=== PATIENT | female | born 1945 | race Caucasian/White ===

== ENCOUNTER → 2017-11-23 | Outpatient (CLI) | payer MEDICARE | LOC: LAB 13:00 → LAB SHORT 13:00 | DX: N39.0 Urinary tract infection, site not specified (principal) | CPT/HCPCS: 87086 ==

== ENCOUNTER → 2018-01-30 | Outpatient (CLI) | payer MEDICARE | END | disposition home or self-care (01) | LOC: LAB 11:30 → LAB SHORT 11:30 | DX: L98.499 Non-pressure chronic ulcer of skin of other sites with unspecified severity (principal) | CPT/HCPCS: 87070; 87205 ==

== ENCOUNTER → 2019-02-19 | Outpatient (CLI) | payer MEDICARE | END | disposition home or self-care (01) | LOC: LAB SHORT 11:30 → PLD 11:30 | DX: L30.8 Other specified dermatitis (principal) | CPT/HCPCS: 88305; 88312 ==

== ENCOUNTER 2020-09-16 07:15 | Day surgery (SDC) | payer MEDICARE ==
[~2020-09-16] VITALS: Ht 165.1 cm; Wt 71.7 kg
[~2020-09-16 07:15] MED LIST: Naproxen375 MG PO
--- NOTE | 2020-09-16 07:57 | NUR ---
09/16/20 0757 VAUGHN KELLER 0745-TETRACAINE GTT PLACED TO OPERATIVE EYE, 0748 MEDICATED PLEDGETT PLACED TO OPERATIVE EYE PER ORDERS
== END 2020-09-16 09:04 | disposition home or self-care (01) ==
LOC: ORSCSDS 07:15
PROVIDERS: Ophthalmology
PROC: 08RK3JZ Replacement of Left Lens with Synthetic Substitute, Percutaneous Approach (ICD-10-PCS; principal; 2020-09-16 08:30)
DX: H25.12 Age-related nuclear cataract, left eye (principal)
CPT/HCPCS: A9270; J2001; J2250; J3010; J3301; J7040; V2632

== ENCOUNTER 2021-06-10 12:00 | Inpatient (IN) | payer MEDICARE ==
[~2021-06-10] VITALS: Ht 165.1 cm; Wt 69.0 kg
[2021-06-10 13:43] LABS: BASOPHILS ABSOLUTE AUTO 0.04 K/mm3 (0.00-0.23); BASOPHILS PERCENT AUTO 1 % (0-2); EOSINOPHILS ABSOLUTE AUTO 0.09 K/mm3 (0.00-0.68); EOSINOPHILS PERCENT AUTO 2 % (0-6); Hematocrit 40.2 % (33.0-51.0); Hemoglobin 12.8 g/dL (11.5-16.0); IMMATURE GRAN ABSOLUTE AUTO 0.02 K/mm3 (0.00-0.10); IMMATURE GRAN PERCENT AUTO 0 % (0-1); LYMPHOCYTES ABSOLUTE AUTO 1.65 K/mm3 (0.84-5.20); LYMPHOCYTES PERCENT AUTO 28 % (21-46); MONOCYTES ABSOLUTE AUTO 0.38 K/mm3 (0.16-1.47); MONOCYTES PERCENT AUTO 6 % (4-13); Mean Corpuscular HGB Conc 31.8 g/dL (31.5-36.5); Mean Corpuscular Volume 88 fL (80-100); Mean Platelet Volume 9.8 fL (9.1-12.4); NEUTROPHILS ABSOLUTE AUTO 3.74 K/mm3 (1.96-9.15); NEUTROPHILS PERCENT AUTO 63 % (41-73); Platelet Count 402 K/mm3 (150-400); RDW Coefficient Variation 13.1 % (11.7-14.2); RDW Standard Deviation 42.3 fL (35.1-46.3); Red Blood Cell Count 4.57 M/mm3 (3.80-5.20); White Blood Cell Count 5.92 K/mm3 (4.00-11.30)
[2021-06-10 13:57] LABS: International Normalized Ratio 1.03; Prothrombin Time Results 10.8 Sec (9.7-11.5)
[2021-06-10 14:05] LABS: Alanine Aminotransfer (ALT/SGP 21 U/L (12-78); Albumin, Blood 3.8 g/dL (3.4-5.0); Albumin/Globulin Ratio 1.1 (0.8-1.8); Alk Phos 88 U/L (50-136); Anion Gap 6 mmol/L (6-16); Aspartate Aminotrans (AST/SGOT 16 U/L (12-37); Bilirubin, Total 0.3 mg/dL (0.1-1.0); Blood Urea Nitrogen 13 mg/dL (8-24); Bun/Creatinine Ratio 15.2 (12.0-20.0); CO2, Blood 26 mmol/L (21-32); Calcium, Blood 9.7 mg/dL (8.5-10.1); Chloride, Blood 108 mmol/L (98-108); Creatinine, Blood 0.86 mg/dL (0.40-1.00); Globulin, Blood 3.5 g/dL (2.2-4.0); Glomerular Filtration Rate >60 (60-); Glucose, Blood 103 mg/dL (70-99); Potassium, Blood 3.8 mmol/L (3.5-5.5); Sodium, Blood 140 mmol/L (136-145); Total Protein, Blood 7.3 g/dL (6.4-8.2)
[2021-06-10 15:25] LABS: Influenza A, PCR NEGATIVE (NEGATIVE); Influenza B, PCR NEGATIVE (NEGATIVE); Resp Syncytial Virus, PCR NEGATIVE (NEGATIVE); SARS-Cov-2 (COVID-19) PCR, MMC NEGATIVE (NEGATIVE)
[2021-06-10 19:03] LABS: Hematocrit 41.2 % (33.0-51.0); Hemoglobin 13.2 g/dL (11.5-16.0)
[2021-06-10 23:41] LABS: Hematocrit 40.1 % (33.0-51.0); Hemoglobin 12.9 g/dL (11.5-16.0)
[2021-06-11 05:15] LABS: Hemoglobin 12.9 g/dL (11.5-16.0)
[2021-06-11 11:21] LABS: Hemoglobin 12.4 g/dL (11.5-16.0)
[2021-06-11] MEDS ORDERED: AMLO10 PO (12:17)
== END 2021-06-11 12:55 | disposition home or self-care (01) | DRG 64 ==
LOC: CT 12:00 → ER 12:00 → EDSTATUS 13:00 → CT 13:00 → ERHOLD 15:51
PROVIDERS: Emergency Medicine; ADMIT Internal Medicine
DX: I61.9 Nontraumatic intracerebral hemorrhage, unspecified (principal); G93.6 Cerebral edema; I16.1 Hypertensive emergency; R26.89 Other abnormalities of gait and mobility; Z20.822 Contact with and (suspected) exposure to COVID-19; I10 Essential (primary) hypertension; Z98.890 Other specified postprocedural states; Z88.5 Allergy status to narcotic agent; Z88.8 Allergy status to other drugs, medicaments and biological substances; Z98.49 Cataract extraction status, unspecified eye; Z87.891 Personal history of nicotine dependence
CPT/HCPCS: 0241U; 36415; 70450; 70551; 70552; 80053; 84484; 85014; 85018; 85025; 85610; 85730; 93005; 93010; 96365; 96366; 96375; 96376; 99285-25; A9270; A9579; G0378; J7050

== ENCOUNTER 2021-12-17 00:20 | Day surgery (SDC) | payer MEDICARE ==
[~2021-12-17 00:20] MED LIST changes: +AMLO10 PO
[2021-12-17] MEDS ORDERED: VALA500 PO (17:11)
== END 2021-12-17 16:50 | disposition home or self-care (01) ==
LOC: ATC 00:20
DX: D50.9 Iron deficiency anemia, unspecified (principal); Z87.891 Personal history of nicotine dependence; Z88.5 Allergy status to narcotic agent; Z88.8 Allergy status to other drugs, medicaments and biological substances
CPT/HCPCS: 36415; 86850; 86900; 86901; 86920; J7040; P9016

== ENCOUNTER 2022-01-17 08:45 | Day surgery (SDC) | payer MEDICARE ==
[~2022-01-17] VITALS: Ht 165.1 cm; Wt 67.2 kg
[~2022-01-17 08:45] MED LIST changes: +VALA500 PO
== END 2022-01-17 11:27 | disposition home or self-care (01) ==
LOC: ORSCSDS 08:45
PROVIDERS: Student in an Organized Health Care Education/Training Program
PROC: 0DB58ZX Excision of Esophagus, Via Natural or Artificial Opening Endoscopic, Diagnostic (ICD-10-PCS; principal; 2022-01-17 10:15)
PROC: 0DBM8ZX Excision of Descending Colon, Via Natural or Artificial Opening Endoscopic, Diagnostic (ICD-10-PCS; principal; 2022-01-17 10:15)
PROC: 0DBK8ZX Excision of Ascending Colon, Via Natural or Artificial Opening Endoscopic, Diagnostic (ICD-10-PCS; principal; 2022-01-17 10:15)
PROC: 3E0H8KZ Introduction of Other Diagnostic Substance into Lower GI, Via Natural or Artificial Opening Endoscopic (ICD-10-PCS; principal; 2022-01-17 10:15)
PROC: 0DBL8ZX Excision of Transverse Colon, Via Natural or Artificial Opening Endoscopic, Diagnostic (ICD-10-PCS; principal; 2022-01-17 10:15)
PROC: 0DB98ZX Excision of Duodenum, Via Natural or Artificial Opening Endoscopic, Diagnostic (ICD-10-PCS; principal; 2022-01-17 10:15)
PROC: 0DB78ZX Excision of Stomach, Pylorus, Via Natural or Artificial Opening Endoscopic, Diagnostic (ICD-10-PCS; principal; 2022-01-17 10:15)
PROC: 0DB48ZX Excision of Esophagogastric Junction, Via Natural or Artificial Opening Endoscopic, Diagnostic (ICD-10-PCS; principal; 2022-01-17 10:15)
PROC: 0DBN8ZX Excision of Sigmoid Colon, Via Natural or Artificial Opening Endoscopic, Diagnostic (ICD-10-PCS; principal; 2022-01-17 10:15)
DX: D50.9 Iron deficiency anemia, unspecified (principal); K22.70 Barrett's esophagus without dysplasia; C18.2 Malignant neoplasm of ascending colon; D12.4 Benign neoplasm of descending colon; D12.3 Benign neoplasm of transverse colon; D12.5 Benign neoplasm of sigmoid colon; K29.70 Gastritis, unspecified, without bleeding; K44.9 Diaphragmatic hernia without obstruction or gangrene; Z79.899 Other long term (current) drug therapy
CPT/HCPCS: 88305; 88312; 88342; J2405; J2704

== ENCOUNTER 2022-02-25 06:05 | Inpatient (IN) | payer MEDICARE ==
[~2022-02-25] VITALS: Ht 165.1 cm; Wt 69.0 kg
[~2022-02-25 06:05] MED LIST changes: +LOSA50 PO; +LOSARTAN-HCTZ1 EACH PO; +OMEP20ER PO; +VALTREX500 M2 PO
--- NOTE | 2022-02-25 11:33 | NUR ---
02/25/22 1133 Edward Lopez [address] IN PLACE PER SURGEON. APPROX 300 IN BAG UPON TRANSFER
--- NOTE | 2022-02-25 15:36 | NUR ---
POST OP: REPORT RECEIVED FROM PROCEDURE ANALYST. PT TO UNIT AT ABOUT 1200. UPON ASSESSMENT PT IS A/O, VSS. SURGICAL SITES WNL. PT DENIES NAUSEA, ABLE TO TAKE SIPS OF WATER. PT REPORTS PAIN IS 2/10, TOLERABLE AT THIS TIME. PT AT BEDSIDE, WILL CTM.
--- NOTE | 2022-02-25 15:38 | NUR ---
[facility] SOCIAL WORKER SET UP AT ABOUT 1430. PT REPORTS PAIN UNCHANGED 08/05. PT GIVEN INSTRUCTIONS ON BUTTON USE, PT VERBALIZED UNDERSTANDING.
--- NOTE | 2022-02-25 17:49 | NUR ---
SUMMARY: NO ACUTE CHANGE SINCE POST OP. PT IS A/O, VSS. PT HAS RATED PAIN 4/10 AT THE HIGHEST, HAS PREFERED TYLENOL OVER USING THE INVOICE CONTROL CLERK. SURGICAL SITES ARE WNL, HERNÁNDEZ DRAINING. PT ABLE TO TOLERATE SMALL SIPS OF WATER, NO N/V. NO ACUTE CONCERNS, WILL PASS REPORT TO SHARONDA EATON.
--- NOTE | 2022-02-26 01:30 | NUR ---
INCREASED BLEEDING/WEAKNESS 2234 PT CALLED STAFF INTO THE ROOM TO REPORT WEAKNESS. SHE WAS LAYING IN BED ON HER SIDE. SHE REPORTS THAT SHE AMBULATED TO THE BATHROOM AND BARELY MADE IT BACK DUE TO INCREASED WEAKNESS. PRIOR TO THIS TIME, PT HAD BEEN FEELING GREAT. SHE REPORTED A MILD UPSET STOMACH AFTER DINNER, BUT OTHERWISE HAD BEEN DOING WELL. I EXAMINED THE TOILET, WHERE I FOUND A MODERATE AMOUNT OF HOLLIS BLOOD THAT SHE REPORTS COMING FROM HER RECTUM. PT REPORTS THAT SHE HAD BEEN HAVING THESE BLOODY STOOLS T/O THE DAY, BUT THAT IT HAD STARTED TO IMPROVE OVER THE COURSE OF THE DAY AND THAT HER STOOL HAD BEEN CLEARING. DR. STACY FIRST MADE AWARE OF PT BLOODY STOOL BY DAYSHIFT RN YESTERDAY 02/26 WHEN EPISODES FIRST STARTED OCCURING. HE DISCUSSED WITH PT THAT SOME BLEEDING AFTER THIS TYPE OF SURGERY IS TO BE EXPECTED. 2243 PT NEW REPORTS OF WEAKNESS THIS EVENING, INCREASE IN BLOODY STOOLS MORE SO THAN PREVIOUSLY REPORTED, AND INCREASED O2 NEEDS OF 1-2 LITERS FROM ROOM AIR TO KEEP SATS ABOVE 90'S IS A FRESH CONCERN. DR. STACY CALLED AND NOTIFIED. DR. STACY NOTIFIED OF INCREASED WEAKNESS/ RECTAL BLEEDING AND THE NEED FOR O2. NOTIFIED OF HIM OF PT CURRENT VITAL SIGNS. PT HEMODYNAMICALLY STABLE AT THIS TIME WITH REPEATED VITAL CHECKS. H&H, MAINTENANCE AND FLUID BOLUS ORDERED. H&H LOW AT 9.0 BUT STABLE. LAB RESULTS REVIEWED BY DR. STACY. REPEAT LABS TO BE DONE LATER THIS MORNING. 0100 PT ANXIOUS AND DUE TO HER NEW ONSET WEAKNESS PT REPORTS A CONCERN ABOUT A BRAIN BLEED SHE HAS A PMH OF A BRAIN BLEED AND REPORTS SHE EXPERIENCED THIS SAME TYPE OF WEAKNESS. NEURO IS INTACT PER MY ASSESSMENT. SHE IS REQUSTING A HEAD CT. DR. STACY MADE AWARE OF PT CONCERNS, AND FEELS THAT THE WEAKNESS IS CONTRIBUTED BY THE SURGERY, THIS WAS EXPLAINED TO PT. HE GAVE PT THE OPTION FOR A HEAD CT AND IF SHE DECIDED SHE WANTED ONE DURING HER ADMISSON THAT ONE WOULD BE ORDERED. AFTER RECEIVING THAT EXPLANATION AND REASSURANCE FROM DR. STACY SHE HAS NOT REQUESTED THAT ONE BE DONE AT THIS TIME. 0145 AT THIS TIME AFORMENTIONED INTERVENTIONS HAVE BEEN INITIATED ORDERED. PT RESTING IN BED AT THIS TIME. LAP SITES TO ABD X5 C/D/I. HAT IN TOIET TO MEASURE FURTHER BLOOD OUTPUT. PT VOIDING WITHOUT DIFFICULTY AND VITALS REMAIN STABLE. WILL CONTINUE MONITORING.
[2022-02-26 04:53] LABS: Bun/Creatinine Ratio 16.3 (12.0-20.0); Creatinine, Blood 0.86 mg/dL (0.40-1.00); Potassium, Blood 3.8 mmol/L (3.5-5.5)
[2022-02-26 05:44] LABS: BASOPHILS ABSOLUTE AUTO 0.07 K/mm3 (0.00-0.23); BASOPHILS PERCENT AUTO 1 % (0-2); EOSINOPHILS ABSOLUTE AUTO 0.01 K/mm3 (0.00-0.68); EOSINOPHILS PERCENT AUTO 0 % (0-6); Hematocrit 33.3 % (33.0-51.0); Hemoglobin 10.9 g/dL (11.5-16.0); IMMATURE GRAN PERCENT AUTO 1 % (0-1); LYMPHOCYTES ABSOLUTE AUTO 1.72 K/mm3 (0.84-5.20); LYMPHOCYTES PERCENT AUTO 20 % (21-46); MONOCYTES ABSOLUTE AUTO 0.76 K/mm3 (0.16-1.47); MONOCYTES PERCENT AUTO 9 % (4-13); Mean Corpuscular HGB 26.5 pg (26.0-34.0); Mean Corpuscular HGB Conc 32.7 g/dL (31.5-36.5); Mean Corpuscular Volume 81 fL (80-100); NEUTROPHILS ABSOLUTE AUTO 5.92 K/mm3 (1.96-9.15); NEUTROPHILS PERCENT AUTO 69 % (41-73); Platelet Count 268 K/mm3 (150-400); RDW Coefficient Variation 20.7 % (11.7-14.2); RDW Standard Deviation 60.3 fL (35.1-46.3); Red Blood Cell Count 4.12 M/mm3 (3.80-5.20); White Blood Cell Count 8.58 K/mm3 (4.00-11.30)
[2022-02-26 05:49] LABS: Mean Platelet Volume 9.7 fL (9.1-12.4)
--- NOTE | 2022-02-26 06:29 | NUR ---
SHIFT SUMMARY PT POD 0 HEMICOLECTOMY. PT HAS DONE WELL OVERNIGHT, AND HAS ONLY HAD MILD ABD PAIN. NO N/V. BOWEL TONES HYPOACTIVE, AND PT NOT PASSING GAS AT THIS TIME. PAIN WELL CONTROLLED WITH SCHEDULED TYLENOL AT THIS TIME, AND PT HAS NOT USED ANY OF THE [facility] [employer] EPIDEMIOLOGIST. PT HAS RESTED IN BED T/O THE NIGHT. ALTHOUGH SHE HAS NOT YET USED THE VETERINARY EPIDEMIOLOGIST, SHE WOULD LIKE TO KEEP THE VETERINARY EPIDEMIOLOGIST AN OPTION SHE IS CONCERNED ABOUT PAIN WITH AMBULATION. PT HAS NOT YET AMBULATED AFTER SURGERY AND SHE IS CONCERNED WITH HOW HER BODY WILL RESPOND. LAP SITES TO ABD C/D/I. IVF INFUSING ORDERED. VITALS ARE STABLE. HERNÁNDEZ PATENT AND DRAINING. BED IN LOWEST POSITION, CALL LIGHT WITHIN REACH.
--- NOTE | 2022-02-26 11:58 | NUR ---
BM: PT UP TO HAVE 2 SMALL RED BM'S. VOID X1 AFTER CATHETER REMOVAL.
--- NOTE | 2022-02-26 15:36 | NUR ---
OUTPUT: PT CONTINUES TO HAVE HOLLIS RED LIQUID BM. CBC TO BE REPEATED IN AM.
--- NOTE | 2022-02-26 19:33 | NUR ---
PT HAS BEEN STABLE THIS SHIFT. MINIMAL PAIN. NO NAUSEA. PT HAS HAD SEVERAL BLOODY BM'S. CBC TO BE REPEATED IN AM. PT TOLERATING CLEAR LIQUIDS. AMBULATING INDEP IN ROOM. LAP SITES CDI X5. VOIDING WELL AFTER HERNÁNDEZ DC'D. IV SL. PT CALLS APPROPRIATELY NEEDED.
[2022-02-26 23:06] LABS: Hematocrit 28.5 % (33.0-51.0)
--- NOTE | 2022-02-27 01:30 | NUR ---
INCREASED BLEEDING/WEAKNESS 2234 PT CALLED STAFF INTO THE ROOM TO REPORT WEAKNESS. SHE WAS LAYING IN BED ON HER SIDE. SHE REPORTS THAT SHE AMBULATED TO THE BATHROOM AND BARELY MADE IT BACK DUE TO INCREASED WEAKNESS. PRIOR TO THIS TIME, PT HAD BEEN FEELING GREAT. SHE REPORTED A MILD UPSET STOMACH AFTER DINNER, BUT OTHERWISE HAD BEEN DOING WELL. I EXAMINED THE TOILET, WHERE I FOUND A MODERATE AMOUNT OF HOLLIS BLOOD THAT SHE REPORTS COMING FROM HER RECTUM. PT REPORTS THAT SHE HAD BEEN HAVING THESE BLOODY STOOLS T/O THE DAY, BUT THAT IT HAD STARTED TO IMPROVE OVER THE COURSE OF THE DAY AND THAT HER STOOL HAD BEEN CLEARING. DR. STACY FIRST MADE AWARE OF PT BLOODY STOOL BY DAYSHIFT RN YESTERDAY 02/26 WHEN EPISODES FIRST STARTED OCCURING. HE DISCUSSED WITH PT THAT SOME BLEEDING AFTER THIS TYPE OF SURGERY IS TO BE EXPECTED. 2243 PT NEW REPORTS OF WEAKNESS THIS EVENING, INCREASE IN BLOODY STOOLS MORE SO THAN PREVIOUSLY REPORTED, AND INCREASED O2 NEEDS OF 1-2 LITERS FROM ROOM A TO KEEP SATS ABOVE 90'S IS A FRESH CONCERN. DR. STACY CALLED AND NOTIFIED. DR. STACY NOTIFIED OF INCREASED WEAKNESS/ RECTAL BLEEDING AND THE NEED FOR NOTIFIED OF HIM OF PT CURRENT VITAL SIGNS. PT HEMODYNAMICALLY STABLE AT THIS TIME WITH REPEATED VITAL CHECKS. H&H, MAINTENANCE AND FLUID BOLUS ORDERED. H&H LOW AT 9.0 BUT STABLE. LAB RESULTS REVIEWED BY DR. STACY. REPEAT LABS TO BE DONE LATER THIS MORNING. 0100 PT ANXIOUS AND DUE TO HER NEW ONSET WEAKNESS PT REPORTS A CONCERN ABOUT A BRAIN BLEED SHE HAS A PMH OF A BRAIN BLEED AND REPORTS SHE EXPERIENCED THI SAME TYPE OF WEAKNESS. NEURO IS INTACT PER MY ASSESSMENT. SHE IS REQUSTING A HEAD CT. DR. STACY MADE AWARE OF PT CONCERNS, AND FEELS THAT THE WEAKNESS IS CONTRIBUTED BY THE SURGERY, THIS WAS EXPLAINED TO PT. HE GAVE PT THE OPTION FOR A HEAD CT AND IF SHE DECIDED SHE WANTED ONE DURING HER ADMISSON THAT ONE WOULD BE ORDERED. AFTER RECEIVING THAT EXPLANATION AND REASSURANCE FROM DR. STACY SHE HAS NOT REQUESTED THAT ONE BE DONE AT THIS TIME. 0145 AT THIS TIME AFORMENTIONED INTERVENTIONS HAVE BEEN INITIATED ORDERED. PT RESTING IN BED AT THIS TIME. LAP SITES TO ABD X5 C/D/I. HAT IN TOIET TO MEASURE FURTHER BLOOD OUTPUT. PT VOIDING WITHOUT DIFFICULTY AND VITALS REMAIN STABLE. WILL CONTINUE MONITORING.
[2022-02-27 05:39] LABS: BASOPHILS ABSOLUTE AUTO 0.04 K/mm3 (0.00-0.23); BASOPHILS PERCENT AUTO 1 % (0-2); EOSINOPHILS PERCENT AUTO 0 % (0-6); Hematocrit 31.2 % (33.0-51.0); Hemoglobin 9.6 g/dL (11.5-16.0); IMMATURE GRAN ABSOLUTE AUTO 0.04 K/mm3 (0.00-0.10); IMMATURE GRAN PERCENT AUTO 1 % (0-1); LYMPHOCYTES ABSOLUTE AUTO 1.32 K/mm3 (0.84-5.20); LYMPHOCYTES PERCENT AUTO 15 % (21-46); MONOCYTES ABSOLUTE AUTO 0.41 K/mm3 (0.16-1.47); MONOCYTES PERCENT AUTO 5 % (4-13); Mean Corpuscular HGB 26.2 pg (26.0-34.0); Mean Corpuscular HGB Conc 30.8 g/dL (31.5-36.5); Mean Corpuscular Volume 85 fL (80-100); Mean Platelet Volume 9.1 fL (9.1-12.4); NEUTROPHILS ABSOLUTE AUTO 7.05 K/mm3 (1.96-9.15); NEUTROPHILS PERCENT AUTO 80 % (41-73); Platelet Count 290 K/mm3 (150-400); RDW Coefficient Variation 20.4 % (11.7-14.2); RDW Standard Deviation 53.1 fL (35.1-46.3); Red Blood Cell Count 3.66 M/mm3 (3.80-5.20); White Blood Cell Count 8.86 K/mm3 (4.00-11.30)
--- NOTE | 2022-02-27 07:10 | NUR ---
SHIFT SUMMARY POD 1 HEMICOLECTOMY. PT HAS HAD A DIFFICULT NIGHT, SHE HAS EXPERIENCED AN INCREASE IN RECTAL BLEEDING, AND NAUSEA. HOWEVER, SHE HAS DENIED PAIN ABD PAIN T/O THE NIGHT. SEE PRIOR NURSES NOTE REGARDING PT RECTAL BLEEDING OVERNIGHT. H&H HAS BEEN CLOSELY MONITORED OVER THE COURSE OF THE NIGHT, BLOOD COUNT IS LOW BUT STABLE, AND PT HAS BEEN RESUSCIATED WITH FLUIDS. PT ALSO MEDICATED FOR NAUSEA X2 THIS SHIFT WITH AFFECT. AFTER RECEIVING FLUIDS AND ANTIEMETICS PT REPORTS FEELING BETTER, BUT CONTINUES TO HAVE INTERMITTENT WAVES OF NAUSEA. LAP SITES TO ABD X5 C/D/I. ABD SOFT, MODERATELY DISNTENDED. BOWEL TONES HYPERACTIVE. VITALS ARE STABLE. DR. STACY ROUNDED ON PT THIS AM, AND DISCUSSED WITH PT AGAIN THAT RECTAL BLEEDING TO BE EXPECTED BUT SHOULD EASE WITHIN THE NEXT FEW DAYS, AND ALSO ADVISED THAT PT BE MORE CAUTIOUS WITH PO INTAKE DUE TO INCREASED NAUSEA OVERNIGHT AFTER ADVANCEMENT IN DIET. MONITORING OF H&H TO CONTINUE. NO OTHER CHANGES TO REPORT. BED IN LOWEST POSITION, CALL LIGHT WITHIN REACH.
[2022-02-27 11:25] LABS: Hematocrit 30.9 % (33.0-51.0); Hemoglobin 9.5 g/dL (11.5-16.0)
--- NOTE | 2022-02-27 17:04 | NUR ---
SUMMARY PT NAUSEATED AND HAD REFLUX THIS NORNING, FELT IMPROVED AND THEN SYMPTOMS RETURNED THIS AFTERNOON. OBTAINED ORDERS FOR PROTONIX SCHEDULED AND PRN TUMS, WHICH WERE ADMINISTERED. PT DECLINED TYLENOL AND IS TAKING CLEAR LIQUIDS SPARINGLY. PASSING BLOOD RECTALLY. DR STACY AWARE AND OBSERVED. 1700 H&H PENDING. PT PLEASANT AND COOPERATIVE. CALL LIGHT IN REACH.
[2022-02-27 17:30] LABS: Hematocrit 30.3 % (33.0-51.0); Hemoglobin 9.4 g/dL (11.5-16.0)
--- NOTE | 2022-02-28 04:29 | NUR ---
POD2 FOR A RIGHT HEMICOLECTOMY. 5 LAP SITE DRESSINGS REMAIN C/D/I. PT REPORTS INCREASED REFLUX AND HEARTBURN. MEDICATED PER EMAR FOR HEARTBURN. PATIENT REPORTS HER DISCOMFORT HAS IMPROVED THE MOST SINCE STARTING PROTONIX. SHE HAS BEEN TOLLERATING PO INTAKE, BUT HAS BEEN DRINKING SMALL AMOUNTS DUE TO THE REFLUX. THE PATIENT HAS REPORTED LITTLE TO NO PAIN AND HAS NOT TAKEN ANY MEDICATION FOR PAIN TONIGHT. LAST STOOL NOTED TO BE COFFEE-GROUNDS. PATIENT REPROTS PASSING FLATTUS REGULARLY. PATIENT HAS BEEN AMBULATING WITH A SBA. CURRENTLY RESTING, IN NO DISTRESS. CALL LIGHT IN REACH.
[2022-02-28 04:56] LABS: BASOPHILS ABSOLUTE AUTO 0.04 K/mm3 (0.00-0.23); BASOPHILS PERCENT AUTO 1 % (0-2); EOSINOPHILS ABSOLUTE AUTO 0.23 K/mm3 (0.00-0.68); EOSINOPHILS PERCENT AUTO 3 % (0-6); Hematocrit 28.8 % (33.0-51.0); Hemoglobin 8.9 g/dL (11.5-16.0); IMMATURE GRAN ABSOLUTE AUTO 0.02 K/mm3 (0.00-0.10); IMMATURE GRAN PERCENT AUTO 0 % (0-1); LYMPHOCYTES ABSOLUTE AUTO 2.05 K/mm3 (0.84-5.20); LYMPHOCYTES PERCENT AUTO 24 % (21-46); MONOCYTES PERCENT AUTO 7 % (4-13); Mean Corpuscular HGB 26.6 pg (26.0-34.0); Mean Corpuscular HGB Conc 30.9 g/dL (31.5-36.5); Mean Corpuscular Volume 86 fL (80-100); Mean Platelet Volume 9.3 fL (9.1-12.4); NEUTROPHILS ABSOLUTE AUTO 5.45 K/mm3 (1.96-9.15); NEUTROPHILS PERCENT AUTO 65 % (41-73); Platelet Count 306 K/mm3 (150-400); RDW Coefficient Variation 19.8 % (11.7-14.2); RDW Standard Deviation 52.1 fL (35.1-46.3); Red Blood Cell Count 3.35 M/mm3 (3.80-5.20); White Blood Cell Count 8.39 K/mm3 (4.00-11.30)
[2022-02-28 05:17] LABS: Calcium, Blood 9.1 mg/dL (8.5-10.1); Creatinine, Blood 0.93 mg/dL (0.40-1.00); Potassium, Blood 3.8 mmol/L (3.5-5.5)
--- NOTE | 2022-02-28 16:05 | NUR ---
SHIFT SUMMARY POD 3 ROBO RIGHT HEMICOLECTOMY AA0X4, PT AMBULATING FREQUENTLY IN THE HALLS. DENIES NAUSEA OR PAIN AT THIS TIME. PASSING GAS, NO BOWEL MOVEMENT PER REPORT. DRINKING FLUIDS AND VOIDING WELL. TAKING A SHOWER AT THIS TIME. PLAN IS TO ADVANCE DIET AND EVENTUALLY DISCHARGE TO HOME.
--- NOTE | 2022-03-01 04:23 | NUR ---
POD4 FOR A RIGHT HEMICOLECTOMY. 5 LAP SITES REMAIN C/D/I. THE PT DID NOT HAVE ANY BM'S LAST NIGHT, BUT IS PASSING FLATTUS REGULARLY. NO DIFFICULTY NOTED WITH VOIDING. TOLLERATING PO INTAKE, MEDICATED ONCE FOR REFLUX WITH TUMS. THE PT DID NOT C/O ANY PAIN T/O THE SHIFT. THE PT HAS BEEN ABLE TO AMBULATE INDEPENDENTLY T/O THE NIGHT. 3L O2 VIA NC PLACED DURING AM VITALS THE PTS O2 SATURATION WAS 85%. SATS RETURNED TO >90% WITH THE SUPPLEMENTED O2. THIS EVENT HAS OCCURED ON PREVIOUS NIGHTS, THE PATIENT REMAINED ASYMPTOMATIC. THE PATIENT EXPRESSED CONCERN OVER NOT HAVING AM LABS BEFORE DISCHARGE TODAY, PATIENT EDUCATED TO SPEAK TO DR. STACY WHEN HE ROUNDS TODAY. THE PATIENT IS CURRENTLY SLEEPING, IN NO DISTRESS.
[2022-03-01] MEDS ORDERED: ACET325 PO (08:37)
[2022-03-01] MEDS ORDERED: MULVITA PO (08:37)
--- NOTE | 2022-03-01 09:35 | NUR ---
DISCHARGE AA0X4. PT AMBULATING WELL, IND IN ROOM AND HALLS. NO WEAKNESS. TOLERATING PO WELL. DENIES NAUSEA OR VOMITING. PASSING FLATUS REGULARILY. LAP SITES REMAIN CDI. ALL INSTRUCTIONS GONE OVER WITH PATIENT. IV REMOVED. PT DECLINED FURTHER QUESTIONS. SHE PLANS TO FOLLOW UP WITH PCP AND DR. STACY DIRECTED. CURRENTLY AWAITING TO ARRIVE.
== END 2022-03-01 09:48 | disposition home or self-care (01) | DRG 330 ==
LOC: SURS 06:05 → PRE IP 07:30 → SURS 12:59
PROVIDERS: ADMIT Surgery
PROC: 8E0W4CZ Robotic Assisted Procedure of Trunk Region, Percutaneous Endoscopic Approach (ICD-10-PCS; 2022-02-25)
PROC: 0DTF4ZZ Resection of Right Large Intestine, Percutaneous Endoscopic Approach (ICD-10-PCS; principal; 2022-02-25 07:30)
DX: C18.2 Malignant neoplasm of ascending colon (principal); K91.840 Postprocedural hemorrhage of a digestive system organ or structure following a digestive system procedure; I10 Essential (primary) hypertension; D50.9 Iron deficiency anemia, unspecified; M85.80 Other specified disorders of bone density and structure, unspecified site; Z86.73 Personal history of transient ischemic attack (TIA), and cerebral infarction without residual deficits; Z98.890 Other specified postprocedural states; Z87.891 Personal history of nicotine dependence; Z88.5 Allergy status to narcotic agent; Z88.8 Allergy status to other drugs, medicaments and biological substances; Z79.899 Other long term (current) drug therapy; Y83.2 Surgical operation with anastomosis, bypass or graft as the cause of abnormal reaction of the patient, or of later complication, without mention of misadventure at the time of the procedure
CPT/HCPCS: 36415; 80048; 85014; 85018; 85025; 86850; 86900; 86901; 88309; 94760; A9270; C9113; J0690; J1100; J1650; J1885; J2250; J2405; J2704; J2795; J3010; J7120

== ENCOUNTER 2022-11-30 07:18 | Day surgery (SDC) | payer MEDICARE ==
[~2022-11-30] VITALS: Ht 165.1 cm; Wt 72.0 kg
[~2022-11-30 07:18] MED LIST changes: +ACET325 PO; +MULVITA PO
[2022-11-30] MEDS ORDERED: ASPI325 PO (07:37)
--- NOTE | 2022-11-30 07:46 | NUR ---
11/30/22 0746 Gayle Simon AT 0737 PLEDGET AT [id number]
[2022-11-30 09:15] VITALS: BP 144/86
== END 2022-11-30 09:26 | disposition home or self-care (01) ==
LOC: ORSCSDS 07:18
PROVIDERS: Ophthalmology
PROC: 08DJ3ZZ Extraction of Right Lens, Percutaneous Approach (ICD-10-PCS; principal; 2022-11-30 08:30)
DX: H25.11 Age-related nuclear cataract, right eye (principal); I10 Essential (primary) hypertension; J44.9 Chronic obstructive pulmonary disease, unspecified; Z79.82 Long term (current) use of aspirin; Z79.899 Other long term (current) drug therapy
CPT/HCPCS: J2250; J3010; J3301; J7040; V2632

== ENCOUNTER 2023-05-04 12:31 | Day surgery (SDC) | payer MEDICARE ==
[~2023-05-04] VITALS: Ht 165.1 cm; Wt 71.6 kg
[~2023-05-04 12:31] MED LIST changes: +ASPI325 PO
[2023-05-04 14:15] VITALS: BP 113/66
--- NOTE | 2023-05-04 14:17 | NUR ---
05/04/23 1417 Sydnee Damon IV DC'D CATH INTACT. PT TOLERATED WELL. COBAN/GAUZE IN PLACE
== END 2023-05-04 14:17 | disposition home or self-care (01) ==
LOC: ORSCSDS 12:31
PROVIDERS: Surgery
PROC: 0DJD8ZZ Inspection of Lower Intestinal Tract, Via Natural or Artificial Opening Endoscopic (ICD-10-PCS; principal; 2023-05-04 13:45)
DX: Z85.038 Personal history of other malignant neoplasm of large intestine (principal); Z86.010 Personal history of colon polyps; K57.30 Diverticulosis of large intestine without perforation or abscess without bleeding; I10 Essential (primary) hypertension; Z87.891 Personal history of nicotine dependence; Z79.899 Other long term (current) drug therapy
CPT/HCPCS: J2704; J7120